=== PATIENT | male | born 1950 | race Caucasian/White ===

== ENCOUNTER 2018-10-07 10:30 | Emergency (ER) | payer OTHER, BC ==
[2018-10-07] MEDS ORDERED: TDAP ADULT 0.5 ML INJ (BOOSTRIX) IM ONE (10:51)
[2018-10-07] MEDS ORDERED: HYDROCODONE/APAP 5/325 TAB PO ONE (10:54)
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
[2018-10-07 12:00] VITALS: BP 142/92
== END 2018-10-07 11:57 | disposition home or self-care (01) ==
LOC: CED 10:30
DX: S42.034A Nondisplaced fracture of lateral end of right clavicle, initial encounter for closed fracture (principal); S42.121A Displaced fracture of acromial process, right shoulder, initial encounter for closed fracture; V14.4XXA Pedal cycle driver injured in collision with heavy transport vehicle or bus in traffic accident, initial encounter; Y92.89 Other specified places as the place of occurrence of the external cause; Y93.55 Activity, bike riding; Y99.9 Unspecified external cause status; Z23 Encounter for immunization
CPT/HCPCS: 71101; 73030; 90471; 90715; 99284; A4565